=== PATIENT | male | born 1980 | race African-American/Black ===

== ENCOUNTER 2016-11-17 12:10 | Emergency (ER) | payer OTHER ==
[2016-11-17 12:20] VITALS: BP 154/98; PULSE 74; TEMP 97.5; BMI 25.0
[2016-11-17 13:44] LABS: URINE APPEARANCE CLEAR; URINE BILIRUBIN NEGATIVE (NEGATIVE); URINE BLOOD NEGATIVE (NEGATIVE); URINE COLOR STRAW; URINE GLUCOSE (UA) NEGATIVE (NEGATIVE); URINE KETONE NEGATIVE (NEGATIVE); URINE LEUK ESTERASE NEGATIVE (NEGATIVE); URINE NITRITE NEGATIVE (NEGATIVE); URINE PROTEIN NEGATIVE (NEGATIVE); URINE UROBILINOGEN NEGATIVE mg/dL (0.2-1.0)
[2016-11-17] MEDS ORDERED: AZITHROMYCIN 250 MG TABLET PO STA (13:55)
[2016-11-17] MEDS ORDERED: AZITHROMYCIN 250 MG TABLET ONE (13:57)
--- NOTE | 2016-11-17 14:02 | PDOC ---
History of Present Illness - General Chief Complaint: Pain Stated Complaint: STD testing Time Seen by Provider: 11/17/16 13:40 History Source: Patient Exam Limitations: No Limitations - History of Present Illness Travel History: Yes ([place]) Initial Comments: 11/17/16 13:56 Was notified by sexual partner to be checked for unknown communicable diseases. States has had no symptoms of painful urination, discharge, swelling or tenderness to his testicles or penis. Has never had a sexually transmitted disease in the past. Is able to get a hold of partner but she was not specific about type of diseases he should be checked for. Pain Radiation: reports: no radiation Activities at Onset: reports: none Past History - Travel Traveled outside of the country in the last 30 days: No Close contact w/someone who was outside of country & ill: No - Past Medical History Allergies/Adverse Reactions: Allergies Allergy/AdvReac Type Severity Reaction Status Date / Time No Known Allergies Allergy Verified 11/17/16 12:20 Home Medications: Ambulatory Orders NK [No Known Home Medication] 11/17/16 - Surgical History Abdominal Surgery: Yes (Left Kidney stent) - Suicide/Smoking/Psychosocial Hx Smoking History: Never smoked Have you smoked in the past 12 months: No Information on smoking cessation initiated: No Hx Alcohol Use: Yes (Occasionally) Drug/Substance Use Hx: No Substance Use Type: None Review of Systems - Review of Systems Able to Perform ROS?: Yes Is the patient limited Indian proficient: Yes Constitutional: Yes: Symptoms Reported, See HPI. No: Fever, Malaise HEENTM: No: Symptoms Reported Respiratory: No: Symptoms reported Cardiac (ROS): No: Symptoms Reported : Yes: See HPI. No: Symptoms Reported, Burning, Dysuria, Discharge, Frequency , Testicular Mass, Testicular Swelling, Testicular Pain All Other Systems: Reviewed and Negative *Physical Exam - Vital Signs Last Vital Signs Temp Pulse Resp BP Pulse Ox 97.5 F L 74 18 154/98 100 11/17/16 12:17 11/17/16 12:17 11/17/16 12:17 11/17/16 12:17 11/17/16 12:17 - Physical Exam General Appearance: Yes: Appropriately Dressed, Apparent Distress HEENT: positive: SHEKHAR, Normal ENT Inspection, TMs Normal, Pharynx Normal Neck: positive: Supple. negative: Tender Gastrointestinal/Abdominal: positive: Normal Bowel Sounds, Soft. negative: Tender Male Genitalia: positive: normal genitalia. negative: discharge, testicular tenderness, testicular mass, epididymus tender, inguinal hernia Musculoskeletal: negative: Normal Inspection, CVA Tenderness Extremity: positive: Normal Capillary Refill, Normal Inspection, Normal Range of Motion Integumentary: positive: Normal Color, Dry, Warm Neurologic: positive: personnel specialist II-XII NML intact, Fully Oriented, Alert, Normal Mood/ Affect, Normal Response, Motor Strength 5/5 Progress Note - Progress Note Progress Note: Sexually-transmitted disease exposure, treated for gonorrhea and chlamydia. Patient opts to be seen by his PMD for further testing including syphilis and HIV. Medicated with Rocephin 250 mg IM and Zithromax 1 g by mouth with no reaction after 30 minutes observation. *DC/Admit/Observation/Transfer Diagnosis at time of Disposition: Possible exposure to STD - Discharge Dispostion Disposition: HOME Condition at time of disposition: Stable Admit: No - Patient Instructions Printed Discharge Instructions: Facts About Sexually Transmitted Infections Additional Instructions: You been treated today with azithromycin 1 g by mouth for treatment of chlamydia You have been treated with Rocephin 250 mg injection for treatment of gonorrhea Always use condoms with the partners Followup with physician in one week for reevaluation and retesting. Encouraged HIV and syphilis testing at that visit. - Post Discharge Activity Forms/Work/School Notes: Back to Work
== END 2016-11-17 14:49 | disposition home or self-care (01) ==
LOC: JERFT 12:10
DX: Z20.2 Contact with and (suspected) exposure to infections with a predominantly sexual mode of transmission (principal)
CPT/HCPCS: 36415; 81003; 87086; 87491; 87591; 99281-25